=== PATIENT | male | born 1985 | race Caucasian/White ===

== ENCOUNTER 2018-05-05 07:04 | Day surgery (SDC) | payer OTHER ==
[2018-05-05] MEDS ORDERED: LACTATED RINGERS 1,000 ML IV ONE (08:00)
[2018-05-05] MEDS ORDERED: MIDAZOLAM 2 MG/2 ML VIAL IVP ONE (08:40)
[2018-05-05] MEDS ORDERED: fentaNYL 250 MCG/5 ML VIAL IVP ONE (08:40)
[2018-05-05 10:05] VITALS: BP 118/95
== END 2018-05-05 07:05 | disposition home or self-care (01) ==
LOC: SDS 07:04
PROVIDERS: ATTEND Internal Medicine
PROC: 0DJD8ZZ Inspection of Lower Intestinal Tract, Via Natural or Artificial Opening Endoscopic (ICD-10-PCS; principal; 2018-05-05 08:30)
DX: K92.1 Melena (principal); R19.4 Change in bowel habit; K64.1 Second degree hemorrhoids; Z80.0 Family history of malignant neoplasm of digestive organs
CPT/HCPCS: 45378; J7120